=== PATIENT | female | born 1950 | race Caucasian/White ===

== ENCOUNTER 2020-09-20 16:09 | Emergency (ER) | payer MEDICARE, OTHER ==
[~2020-09-20] VITALS: Ht 152 cm; Wt 83.0 kg
[2020-09-20] MEDS ORDERED: amLODIPine 5 MG (NORVASC) TAB PO ONE (16:30)
--- NOTE | 2020-09-20 16:32 | ED General ---
General Chief Complaint: General Problems/Pain Stated Complaint: ELEV BP Nursing Triage Note: PT REPORTS SHE JUST HAPPEN TO TAKE HER BLOOD PRESSURE WHEN HER SON WAS TAKING HIS AND SHE HAD AN ELVATED BP. SHE IS NONCOMPLIANT WITH BP MEDS SINCE 2014. Source of Information: Patient Exam Limitations: No Limitations History of Present Illness Date Seen by Provider: Sep 20, 2020 Time Seen by Provider: 16:15 Initial Comments Here with report of blood pressure being high. She apparently took her blood pressure at one of the local stores when her son also took his blood pressure. Hers was noted to be high. She had the pharmacist check it and it was 213/120. Arrives here and is just a little over 200/107. Had very mild headache but that seems to be gone now. Denies chest pain, breathing problems, vision or balance problems or any other concerns. She has known hypertension but has not been on medicines for a while and does not remember what they were before. She is establishing care with [facility] Timing/Duration: 1-3 Hours Severity: Mild Associated Systoms: No Chest Pain, No Diaphoresis; Headaches; No Nausea/Vomiting, No Shortness of Air, No Weakness Allergies and Home Medications Allergies Coded Allergies: No Known Drug Allergies (Unverified , 09/20/20) Patient Home Medication List Home Medication List Reviewed: Yes Review of Systems Review of Systems Constitutional: see HPI; No chills, No fever Respiratory: no symptoms reported Cardiovascular: see HPI; No chest pain, No edema Gastrointestinal: No nausea, No vomiting Genitourinary: no symptoms reported Musculoskeletal: no symptoms reported Psychiatric/Neurological: Headache; Denies Weakness Past Ifnxipx-Mjbabf-Uzfnah Hx Patient Social History Tobacco Use?: No Use of E-Cig and/or Vaping dev: No Substance use?: No Alcohol Use?: No Pt feels they are or have been: No Past Medical History Surgery/Hospitalization HX: C SECTIONS X 4 GALLBLADDER Surgeries: Yes Section, Gallbladder Cardiac: Yes Hypertension Family Medical History Reviewed Nursing Family Hx No Pertinent Family Hx Physical Exam Vital Signs Vital Signs - First Documented 09/20/20 16:15 Temp 36.8 Pulse 93 Resp 20 B/P (MAP) 200/107 (138) Pulse Ox 94 O2 Delivery Room Air Capillary Refill : Less Than 3 Seconds Height, Weight, BMI Height: '" Weight: lbs. oz. kg; 35.00 BMI Method: General Appearance: No Apparent Distress, WD/WN Neck: Non Tender, Supple Respiratory: Lungs Clear, Normal Breath Sounds Cardiovascular: Regular Rate, Rhythm, No Murmur Gastrointestinal: Non Tender, Soft Back: Normal Inspection, No CVA Tenderness, No Vertebral Tenderness Neurologic/Psychiatric: Alert, Oriented x3 Skin: Normal Color, Warm/Dry Progress/Results/Core Measures Suspected Sepsis SIRS Temperature: Pulse: 93 Respiratory Rate: 20 Laboratory Tests 09/20/20 16:30: White Blood Count 7.1 Blood Pressure 200 /107 Mean: 138 Laboratory Tests 09/20/20 16:30: Creatinine 0.79, Platelet Count 225, Total Bilirubin 0.5 Results/Orders Lab Results Laboratory Tests Test 09/20/20 16:30 Range/Units White Blood Count 7.1 4.3-11.0 10^3/uL Red Blood Count 4.79 4.35-5.85 10^6/uL Hemoglobin 14.1 11.5-16.0 G/DL Hematocrit 42 35-52 % Mean Corpuscular Volume 87 80-99 FL Mean Corpuscular Hemoglobin 29 25-34 PG Mean Corpuscular Hemoglobin Concent 34 32-36 G/DL Red Cell Distribution Width 13.0 10.0-14.5 % Platelet Count 225 130-400 10^3/uL Mean Platelet Volume 9.5 7.4-10.4 FL Immature Granulocyte % (Auto) 0 % Neutrophils (%) (Auto) 62 42-75 % Lymphocytes (%) (Auto) 27 12-44 % Monocytes (%) (Auto) 8 0-12 % Eosinophils (%) (Auto) 3 0-10 % Basophils (%) (Auto) 1 0-10 % Neutrophils # (Auto) 4.4 1.8-7.8 X 10^3 Lymphocytes # (Auto) 1.9 1.0-4.0 X 10^3 Monocytes # (Auto) 0.5 0.0-1.0 X 10^3 Eosinophils # (Auto) 0.2 0.0-0.3 10^3/uL Basophils # (Auto) 0.0 0.0-0.1 10^3/uL Immature Granulocyte # (Auto) 0.0 0.0-0.1 10^3/uL Sodium Level 143 135-145 MMOL/L Potassium Level 3.4 L 3.6-5.0 MMOL/L Chloride Level 104 98-107 MMOL/L Carbon Dioxide Level 28 21-32 MMOL/L Anion Gap 11 5-14 MMOL/L Blood Urea Nitrogen 8 7-18 MG/DL Creatinine 0.79 0.60-1.30 MG/DL Estimat Glomerular Filtration Rate > 60 BUN/Creatinine Ratio 10 Glucose Level 105 70-105 MG/DL Calcium Level 9.2 8.5-10.1 MG/DL Corrected Calcium 9.0 8.5-10.1 MG/DL Total Bilirubin 0.5 0.1-1.0 MG/DL Aspartate Amino Transf (AST/SGOT) 21 5-34 U/L Alanine Aminotransferase (ALT/SGPT) 17 0-55 U/L Alkaline Phosphatase 129 40-136 U/L Total Protein 7.1 6.4-8.2 GM/DL Albumin 4.3 3.2-4.5 GM/DL My Orders Orders - AIDAN WAGNER MD Cbc With Automated Diff (09/20/20 16:15) Comprehensive Metabolic Panel (09/20/20 16:15) Amlodipine Tablet (Norvasc Tablet) (09/20/20 16:30) Medications Given in ED Current Medications Medications Dose Ordered Sig/Sandra Route Start Time Stop Time Status Last Admin Dose Admin Amlodipine Besylate 10 mg ONCE ONCE PO 09/20/20 16:30 09/20/20 16:31 DC 09/20/20 16:29 10 MG Vital Signs/I&O 09/20/20 16:15 Temp 36.8 Pulse 93 Resp 20 B/P (MAP) 200/107 (138) Pulse Ox 94 O2 Delivery Room Air Capillary Refill : Less Than 3 Seconds Blood Pressure Mean: 138 Progress Note : Progress Note Seen and evaluated. No external medical history available and no pharmacy history. We will initiate amlodipine 10 mg p.o. and check CBC and CMP. She can then follow-up with [facility] for further direction of care. We can do outpatient prescription pending labs. Monitor patient. 1720: Blood pressure is about the same. Patient is still without complaint. Labs reviewed and show no significant findings. She would like to go home. She will continue outpatient therapy with the medication given. I think this is reasonable as we do not want to approach this too quickly. She will follow-up with [facility]. I will send a prescription to apothecary. Discharged home with return precautions. Patient verbalized understanding instructions and agreement with plan. Departure Impression Primary Impression: Uncontrolled hypertension Disposition: HOME, SELF-CARE Condition: Stable Departure-Patient Inst. Decision time for Depature: 17:22 Referrals: NO,LOCAL PHYSICIAN (PCP/Family) Primary Care Physician Patient Instructions: High Blood Pressure (DC) Add. Discharge Instructions: All discharge instructions reviewed with patient and/or family. Voiced understanding. Take medications as directed. Follow-up with the clinic for recheck and further evaluation within 1 week. Return for chest pain, breathing problems, weakness, vision or balance problems, changes in mental status or other concerns as needed. You should monitor and record your blood pressure daily and take that with you to the clinic. Scripts Amlodipine Besylate (Amlodipine Besylate) 10 Mg Tablet 10 MG PO DAILY for 30 Days, #30 TAB Prov: AIDAN WAGNER MD 09/20/20 AIDAN WAGNER MD Sep 20, 2020 16:32
[2020-09-20 16:40] LABS: EOSINOPHILS % (AUTO) 3 % (0-10); HEMATOCRIT 42 % (35-52); HEMOGLOBIN 14.1 G/DL (11.5-16.0); LYMPHOCYTES % (AUTO) 27 % (12-44); MEAN CORPUSCULAR HEMOGLOBIN 29 PG (25-34); MEAN CORPUSCULAR HGB CONC 34 G/DL (32-36); MEAN CORPUSCULAR VOLUME 87 FL (80-99); MEAN PLATELET VOLUME 9.5 FL (7.4-10.4); MONOCYTES % (AUTO) 8 % (0-12); NEUTROPHILS % (AUTO) 62 % (42-75); PLATELET COUNT 225 10^3/uL (130-400); WHITE BLOOD COUNT 7.1 10^3/uL (4.3-11.0)
[2020-09-20 16:41] LABS: BASOPHILS % (AUTO) 1 % (0-10); EOSINOPHILS # (AUTO) 0.2 10^3/uL (0.0-0.3); LYMPHOCYTES # (AUTO) 1.9 X 10^3 (1.0-4.0); MONOCYTES # (AUTO) 0.5 X 10^3 (0.0-1.0); NEUTROPHILS # (AUTO) 4.4 X 10^3 (1.8-7.8)
[2020-09-20 17:01] LABS: CARBON DIOXIDE 28 MMOL/L (21-32); CHLORIDE 104 MMOL/L (98-107); POTASSIUM 3.4 MMOL/L (3.6-5.0); SODIUM 143 MMOL/L (135-145)
[2020-09-20 17:02] LABS: ALANINE AMINOTRANSFERASE 17 U/L (0-55); ALBUMIN 4.3 GM/DL (3.2-4.5); ALKALINE PHOSPHATASE 129 U/L (40-136); BILIRUBIN,TOTAL 0.5 MG/DL (0.1-1.0); BUN/CREATININE RATIO 10; CALCIUM 9.2 MG/DL (8.5-10.1); CREATININE SERUM 0.79 MG/DL (0.60-1.30); GFR ESTIMATED > 60; GLUCOSE 105 MG/DL (70-105); TOTAL PROTEIN 7.1 GM/DL (6.4-8.2)
[2020-09-20 17:22] VITALS: BP 199/93
[2020-09-20] MEDS ORDERED: AMLO-251 PO (17:22)
== END 2020-09-20 17:25 | disposition home or self-care (01) ==
LOC: ER FS 16:12
DX: I10 Essential (primary) hypertension (principal)
CPT/HCPCS: 36415; 80053; 85025